=== PATIENT | female | born 1980 | race American Indian/Alaskan Native ===

== ENCOUNTER 2017-09-10 21:35 | Emergency (ER) | payer SELFPAY ==
[2017-09-10 21:35] VITALS: BMI 50.7
[2017-09-10 22:02] VITALS: BP 131/72; PULSE 86; RESP 16; TEMP 99; O2SAT 95
[2017-09-10] MEDS ORDERED: Lidocaine 1% Inj (20ml) IJ STA (22:16)
[2017-09-10] MEDS ORDERED: Lidocaine 1% Inj (20ml) ONE (22:20)
--- NOTE | 2017-09-10 22:51 | ED PDOC ---
Arrival/HPI - General Chief Complaint: Abnormal Skin Integrity Historian: Patient - History of Present Illness Narrative History of Present Illness (Text): 09/10/17 22:48 Mrs. Araujo is a 37 year old AAF with no significant past medical history who presents to the [facility] ED with a chief complaint of lacerating her left hand. 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 She endorses pain at the laceration site but denies any erythema, discharge or contact with any uncooked meat. She also denies fever, chills, headache, chest pain, SOB, abdominal pain, burning with urination or numbness/tingling/weakness of any of her extremities or digits of her left hand. Time/Duration: 1-3 hours Symptom Onset: Sudden Symptom Course: Unchanged Quality: Stabbing Severity Level: 8 Activities at Onset: Light Context: Home Past Medical History - Provider Review Nursing Documentation Reviewed: Yes - Travel History Have you recently traveled outside [place] w/in the past 3 mons?: No - Past History Past History: No Previous - Infectious Disease Hx of Infectious Diseases: None - Tetanus Immunization Tetanus Immunization: Up to Date - Past Medical History Past Medical History: No Previous - Cardiac Hx Cardiac Disorders: No - Pulmonary Hx Respiratory Disorders: No - Neurological Hx Neurological Disorder: No - HEENT Hx HEENT Disorder: No - Renal Hx Renal Disorder: No - Endocrine/Metabolic Hx Endocrine Disorders: No - Hematological/Oncological Hx Blood Disorders: No - Integumentary Hx Dermatological Disorder: No - Musculoskeletal/Rheumatological Hx Musculoskeletal Disorders: No - Gastrointestinal Hx Gastrointestinal Disorders: No - Genitourinary/Gynecological Hx Genitourinary Disorders: No - Psychiatric Hx Depression: No Hx Emotional Abuse: No Hx Physical Abuse: No Hx Substance Use: No - Surgical History Hx Section: Yes Hx Cholecystectomy: Yes - Anesthesia Hx Anesthesia: Yes Hx Anesthesia Reactions: No Hx Malignant Hyperthermia: No - Suicidal Assessment Feels Threatened In Home Enviroment: No Family/Social History - Physician Review Nursing Documentation Reviewed: Yes Family/Social History: No Known Family HX Smoking Status: Never Smoked Hx Alcohol Use: Yes Hx Substance Use: No Hx Substance Use Treatment: No Allergies/Home Meds Allergies/Adverse Reactions: Allergies Penicillins Allergy (Verified 09/10/17 22:00) ANAPHYLAXIS Home Medications: Home Meds Medication Instructions Recorded Confirmed No Known Home Med 07/21/15 09/10/17 Review of Systems - Physician Review All systems were reviewed & negative as marked: Yes - Review of Systems Constitutional: Normal Eyes: Normal ENT: Normal Respiratory: Normal Cardiovascular: Normal Gastrointestinal: Normal Genitourinary Female: Normal Musculoskeletal: Normal Skin: Laceration (to left thumb base). absent: Normal Neurological: Normal Endocrine: Normal Hemo/Lymphatic: Normal Psychiatric: Normal Physical Exam Vital Signs Reviewed: Yes Vital Signs Temp Pulse Resp BP Pulse Ox 09/10/17 22:00 99 F 86 16 131/72 95 Temperature: Afebrile Blood Pressure: Normal Pulse: Regular Respiratory Rate: Normal Appearance: Positive for: Well-Appearing, Non-Toxic, Comfortable Pain Distress: None Mental Status: Positive for: Alert and Oriented X 3 - Systems Exam Head: Present: Atraumatic, Normocephalic Pupils: Present: PERRL Extroacular Muscles: Present: EOMI Conjunctiva: Present: Normal Mouth: Present: Moist Mucous Membranes Neck: Present: Normal Range of Motion Respiratory/Chest: Present: Clear to Auscultation, Good Air Exchange. No: Respiratory Distress, Accessory Muscle Use Cardiovascular: Present: Regular Rate and Rhythm, Normal S1, S2. No: Murmurs Abdomen: Present: Normal Bowel Sounds. No: Tenderness, Distention, Peritoneal Signs Back: Present: Normal Inspection Upper Extremity: Present: Normal ROM, NORMAL PULSES, Tenderness (Base of left thumb), Neurovascularly Intact, Capillary Refill < 2s, Other (Linear laceration measuring approximately 1cm to base of left first digit ). No: Normal Inspection, Cyanosis, Edema, Swelling, Erythema, Temperature Abnormalties, Deformity Lower Extremity: Present: Normal Inspection. No: Edema Neurological: Present: GCS=15, CN II-XII Intact, Speech Normal Skin: Present: Warm, Dry, Normal Color. No: Rashes Psychiatric: Present: Alert, Oriented x 3, Normal Insight, Normal Concentration Medical Decision Making ED Course and Treatment: 09/10/17 22:54 Impression: 37 year old AAF with no significant past medical history who presents to the [facility] ED with a chief complaint of lacerating her left hand Plan: -Wound approximated with placement of one suture and dermabond -Patient up to date with last tetanus in 2008 -Discharge with instructions on suture care and to return to either PMD or ED for suture removal in 7 days Prior Visits: No previous visits - Medication Orders Current Medication Orders: Discontinued Medications Lidocaine HCl (Lidocaine 1% (20ml)) 2 ml IJ STAT STA Stop: 09/10/17 22:17 Last Admin: 09/10/17 22:23 Dose: Procedure: Wound Repair - Time Performed Time Performed: 22:56 - Performed by Performed by: Mid-level Provider - Indications Indication(s):: Laceration - Location Location:: Left, Hand Finger:: Left, Thumb Shape:: Linear Dimensions Length cm: 1 Depth:: Epidermis - Anesthetic Technique Anesthetic Technique: Local Local/Regional Anesthetic:: Lidocaine 1% - Debris Debris:: None - Complexity Complexity:: Simple (one layer) - Wound repair method Sutures:: # (1), Size (4.0), Type (Ethilon) Nury:: Tissue glue - Patient tolerated procedure Patient Tolerated Procedure:: Well Disposition/Present on Arrival - Present on Arrival Any Indicators Present on Arrival: No History of DVT/PE: No History of Uncontrolled Diabetes: No Urinary Catheter: No History of Decub. Ulcer: No History Surgical Site Infection Following: None - Disposition Have Diagnosis and Disposition been Completed?: Yes Diagnosis: Laceration of left thumb Disposition: HOME/ ROUTINE Disposition Time: 22:58 Patient Plan: Discharge Condition: GOOD Discharge Instructions (ExitCare): Care For Your Stitches (ED), Laceration (ED) Additional Instructions: Mrs. Araujo, thank you for letting us take care of you today. Your provider was Dr. Jamil. You were treated for left thumb laceration. The emergency medical care you received today was directed at your acute symptoms. If you were prescribed any medication, please fill it and take as directed. It may take several days for your symptoms to resolve. Return to the Emergency Department if your symptoms worsen, do not improve, or if you have any other problems. Please contact your doctor or call one of the physicians/clinics you have been referred to that are listed on the Patient Visit Information form that is included in your discharge packet. Bring any paperwork you were given at discharge with you along with any medications you are taking to your follow up visit. Our treatment cannot replace ongoing medical care by a primary care provider (PCP) outside of the emergency department. PLEASE FOLLOW UP WITH YOUR PMD OR RETURN TO ED IN 7 DAYS FOR SUTURE REMOVAL [facility] your care today. Referrals: [facility], [Non-Staff] - Follow up with primary Forms: [employer] (Albanian)
== END 2017-09-10 23:06 | disposition home or self-care (01) ==
LOC: ED 21:35
DX: S61.012A Laceration without foreign body of left thumb without damage to nail, initial encounter (principal); W26.0XXA Contact with knife, initial encounter; Y92.009 Unspecified place in unspecified non-institutional (private) residence as the place of occurrence of the external cause; Z88.0 Allergy status to penicillin

== ENCOUNTER 2017-09-22 19:34 | Emergency (ER) | payer SELFPAY ==
--- NOTE | 2017-09-22 19:47 | ED PDOC ---
Arrival/HPI - General Historian: Patient <Cesar Altamirano - Last Filed: 09/22/17 19:54> <Dung Best - Last Filed: 09/22/17 20:00> - General Time Seen by Provider: 09/22/17 19:43 - History of Present Illness Narrative History of Present Illness (Text): 09/22/17 19:44 37yo female in ED for suture removal from left hand. Sutures was placed here on 09/10/17. she denies fever, purulent discharge, redness to area. Denies any other complaint. (Cesar Altamirano A) Past Medical History - Provider Review Nursing Documentation Reviewed: Yes - Past History Past History: No Previous - Infectious Disease Hx of Infectious Diseases: None - Tetanus Immunization Tetanus Immunization: Up to Date - Past Medical History Past Medical History: No Previous - Cardiac Hx Cardiac Disorders: No - Pulmonary Hx Respiratory Disorders: No - Neurological Hx Neurological Disorder: No - HEENT Hx HEENT Disorder: No - Renal Hx Renal Disorder: No - Endocrine/Metabolic Hx Endocrine Disorders: No - Hematological/Oncological Hx Blood Disorders: No - Integumentary Hx Dermatological Disorder: No - Musculoskeletal/Rheumatological Hx Musculoskeletal Disorders: No - Gastrointestinal Hx Gastrointestinal Disorders: No - Genitourinary/Gynecological Hx Genitourinary Disorders: No - Psychiatric Hx Depression: No Hx Emotional Abuse: No Hx Physical Abuse: No Hx Substance Use: No - Surgical History Hx Section: Yes Hx Cholecystectomy: Yes - Anesthesia Hx Anesthesia: Yes Hx Anesthesia Reactions: No Hx Malignant Hyperthermia: No - Suicidal Assessment Feels Threatened In Home Enviroment: No <Cesar Altamirano - Last Filed: 09/22/17 19:54> Family/Social History - Physician Review Nursing Documentation Reviewed: Yes Family/Social History: Unknown Family HX Smoking Status: Never Smoked Hx Alcohol Use: Yes Hx Substance Use: No Hx Substance Use Treatment: No <Cesar Altamirano - Last Filed: 09/22/17 19:54> Allergies/Home Meds <Cesar Altamirano A - Last Filed: 09/22/17 19:54> <Dung Best - Last Filed: 09/22/17 20:00> Allergies/Adverse Reactions: Allergies Penicillins Allergy (Verified 09/22/17 19:47) ANAPHYLAXIS Home Medications: Home Meds Medication Instructions Recorded Confirmed No Known Home Med 07/21/15 09/22/17 Review of Systems - Physician Review All systems were reviewed & negative as marked: Yes - Review of Systems Constitutional: Normal Eyes: Normal ENT: Normal Respiratory: Normal Cardiovascular: Normal Gastrointestinal: Normal Genitourinary Female: Normal Musculoskeletal: Normal Skin: Other (suture removal) Neurological: Normal Endocrine: Normal Hemo/Lymphatic: Normal Psychiatric: Normal <Cesar Altamirano - Last Filed: 09/22/17 19:54> Physical Exam Vital Signs Reviewed: Yes Temperature: Afebrile Blood Pressure: Normal Pulse: Regular Respiratory Rate: Normal Appearance: Positive for: Well-Appearing, Non-Toxic, Comfortable Pain Distress: None Mental Status: Positive for: Alert and Oriented X 3 - Systems Exam Head: Present: Atraumatic, Normocephalic Pupils: Present: PERRL Extroacular Muscles: Present: EOMI Conjunctiva: Present: Normal Mouth: Present: Moist Mucous Membranes Neck: Present: Normal Range of Motion Respiratory/Chest: Present: Clear to Auscultation, Good Air Exchange. No: Respiratory Distress, Accessory Muscle Use Cardiovascular: Present: Regular Rate and Rhythm, Normal S1, S2. No: Murmurs Abdomen: Present: Normal Bowel Sounds. No: Tenderness, Distention, Peritoneal Signs Back: Present: Normal Inspection Upper Extremity: Present: Normal Inspection. No: Cyanosis, Edema Lower Extremity: Present: Normal Inspection. No: Edema Neurological: Present: GCS=15, CN II-XII Intact, Speech Normal Skin: Present: Warm, Dry, Normal Color, Other (One suture noted to left song hand). No: Rashes Psychiatric: Present: Alert, Oriented x 3, Normal Insight, Normal Concentration <Cesar Altamirano - Last Filed: 09/22/17 19:54> Vital Signs Pulse Resp BP Pulse Ox 09/22/17 19:54 82 18 148/79 98 Medical Decision Making <Cesar Altamirano - Last Filed: 09/22/17 19:54> <Dung Best - Last Filed: 09/22/17 20:00> ED Course and Treatment: 09/22/17 19:54 suture area cleaned with betadine. Suture removed. Edges appear well approximated. Bacitracine applied. Pt advised to keep wound clean an dry. Referred to her PMD. 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 <Dung Best - Last Filed: 09/22/17 20:00> Disposition/Present on Arrival - Present on Arrival Any Indicators Present on Arrival: No History of DVT/PE: No History of Uncontrolled Diabetes: No Urinary Catheter: No History Surgical Site Infection Following: None - Disposition Have Diagnosis and Disposition been Completed?: Yes Disposition Time: 19:50 Patient Plan: Discharge <Cesar Altamirano - Last Filed: 09/22/17 19:54> <Dung Best - Last Filed: 09/22/17 20:00> - Disposition Diagnosis: Visit for suture removal Disposition: HOME/ ROUTINE Condition: STABLE Discharge Instructions (ExitCare): Stitches Removal (ED) Additional Instructions: Keep wound clean and dry Follow up with your doctor Return to ED for any new or worsening symptoms Referrals: [facility] [place] - Follow up with primary
[2017-09-22 19:54] VITALS: BMI 36.6
[2017-09-22 19:55] VITALS: BP 148/79; PULSE 82; RESP 18; O2SAT 98
== END 2017-09-22 19:55 | disposition home or self-care (01) ==
LOC: ED 19:34
DX: Z48.02 Encounter for removal of sutures (principal); Z88.0 Allergy status to penicillin

== ENCOUNTER 2018-02-26 08:33 | Emergency (ER) | payer OTHER ==
[2018-02-26 09:21] VITALS: RESP 18; TEMP 98.4; BMI 48.4
[2018-02-26] MEDS ORDERED: Oxycodone/Acetaminophen 5/325 mg Tab PO STA (09:46)
--- NOTE | 2018-02-26 09:47 | ED PDOC ---
Arrival/HPI - General Time Seen by Provider: 02/26/18 09:04 Historian: Patient - History of Present Illness Narrative History of Present Illness (Text): 02/26/18 09:50 A 38 year old female, whose past medical history includes cholecystectomy, presents to the emergency department complaining of bilateral shoulder pain. Patient reports left shoulder worse than right. 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 Patient notes pain worsens when she looks up at the ceiling. Patient denies any numbness /tingling or any other complaints at this time. No PMD Past Medical History - Provider Review Nursing Documentation Reviewed: Yes - Past History Past History: No Previous - Infectious Disease Hx of Infectious Diseases: None - Tetanus Immunization Tetanus Immunization: Up to Date - Past Medical History Past Medical History: No Previous - Cardiac Hx Cardiac Disorders: No - Pulmonary Hx Respiratory Disorders: No - Neurological Hx Neurological Disorder: No - HEENT Hx HEENT Disorder: No - Renal Hx Renal Disorder: No - Endocrine/Metabolic Hx Endocrine Disorders: No - Hematological/Oncological Hx Blood Disorders: No - Integumentary Hx Dermatological Disorder: No - Musculoskeletal/Rheumatological Hx Musculoskeletal Disorders: No - Gastrointestinal Hx Gastrointestinal Disorders: No - Genitourinary/Gynecological Hx Genitourinary Disorders: No - Psychiatric Hx Depression: No Hx Emotional Abuse: No Hx Physical Abuse: No Hx Substance Use: No - Surgical History Hx Section: Yes Hx Cholecystectomy: Yes - Anesthesia Hx Anesthesia: Yes Hx Anesthesia Reactions: No Hx Malignant Hyperthermia: No - Suicidal Assessment Feels Threatened In Home Enviroment: No Family/Social History - Physician Review Nursing Documentation Reviewed: Yes Family/Social History: No Known Family HX Smoking Status: Never Smoked Hx Alcohol Use: Yes Hx Substance Use: No Hx Substance Use Treatment: No Allergies/Home Meds Allergies/Adverse Reactions: Allergies Penicillins Allergy (Verified 09/22/17 19:47) ANAPHYLAXIS Review of Systems - Physician Review All systems were reviewed & negative as marked: Yes - Review of Systems Musculoskeletal: Other (bilateral shoulder pain (left worse than right)) Neurological: absent: Other (no numbness/tingling) Physical Exam Vital Signs Reviewed: Yes Vital Signs Temp Pulse Resp BP Pulse Ox 02/26/18 09:20 98.4 F 73 18 129/74 98 Temperature: Afebrile Blood Pressure: Normal Pulse: Regular Respiratory Rate: Normal Appearance: Positive for: Well-Appearing, Non-Toxic, Comfortable Pain Distress: None Mental Status: Positive for: Alert and Oriented X 3 - Systems Exam Head: Present: Atraumatic, Normocephalic Pupils: Present: PERRL Extroacular Muscles: Present: EOMI Conjunctiva: Present: Normal Neck: Present: Normal Range of Motion Respiratory/Chest: Present: Clear to Auscultation, Good Air Exchange. No: Respiratory Distress, Accessory Muscle Use Cardiovascular: Present: Regular Rate and Rhythm, Normal S1, S2. No: Murmurs Abdomen: No: Tenderness, Distention, Peritoneal Signs Back: Present: Normal Inspection Upper Extremity: Present: Normal Inspection. No: Cyanosis, Edema Lower Extremity: Present: Normal Inspection. No: Edema Neurological: Present: GCS=15, CN II-XII Intact, Speech Normal Skin: Present: Warm, Dry, Normal Color. No: Rashes Psychiatric: Present: Alert, Oriented x 3, Normal Insight, Normal Concentration Medical Decision Making ED Course and Treatment: 02/26/18 09:52 Impression: 38 year old female with bilateral shoulder pain (left worse than right). No acute findings on physical exam. Differential Diagnosis included but are not limited to: Cervical Ridiculopathy Plan: -- Cervical Spinal CT -- Motrin -- Zofran -- Percocet -- Urine Test -- Reassess and disposition Progress Notes: 02/26/2018 11:[address] IMPRESSION: Disc space narrowing at C5-6 with posterior ridging and thecal sac indentation. Dictator: Dung Nguyen MD - RAD Interpretation Radiology Orders: 02/26/18 09:46 CERVICAL SPINE W/O CONTRAST [CT] Stat - Medication Orders Current Medication Orders: Discontinued Medications Ibuprofen (Motrin Tab) 800 mg PO STAT STA Stop: 02/26/18 09:47 Last Admin: 02/26/18 10:24 Dose: 800 mg MAR Pain/Vitals Document 02/26/18 10:24 EQ (Rec: 02/26/18 10:24 EQ [id number]) Pain Reassessment Is This A Pain ReAssessment? No Sleep Is patient sleeping during reassessment? No Presence of Pain Presence of Pain Yes Ondansetron HCl (Zofran Odt) 8 mg PO STAT STA Stop: 02/26/18 09:47 Last Admin: 02/26/18 10:24 Dose: 8 mg Oxycodone/Acetaminophen (Percocet 5/325 Mg Tab) 2 tab PO STAT STA Stop: 02/26/18 09:47 Last Admin: 02/26/18 10:24 Dose: 2 tab MAR Pain Assessment Document 02/26/18 10:24 EQ (Rec: 02/26/18 10:24 EQ [id number]) Pain Reassessment Is this a pain reassessment? No Sleep Is patient sleeping during reassessment? No Presence of Pain Presence of Pain Yes - Scribe Statement The provider has reviewed the documentation as recorded by the Sonali Mcguire Provider Scribe Attestation: All medical record entries made by the Scribe were at my direction and personally dictated by me. I have reviewed the chart and agree that the record accurately reflects my personal performance of the history, physical exam, medical decision making, and the department course for this patient. I have also personally directed, reviewed, and agree with the discharge instructions and disposition.' Disposition/Present on Arrival - Present on Arrival Any Indicators Present on Arrival: No History of DVT/PE: No History of Uncontrolled Diabetes: No Urinary Catheter: No History Surgical Site Infection Following: None - Disposition Have Diagnosis and Disposition been Completed?: Yes Diagnosis: Cervical radiculopathy, Bulging disc Disposition: HOME/ ROUTINE Disposition Time: 12:31 Patient Plan: Discharge Condition: GOOD Discharge Instructions (ExitCare): Radiculopathy (DC) Additional Instructions: Cathedra- Please follow up with the Neurosurgeon, Dr. Mccarty, you have a buldging disc in your neck. Percocet is for really bad bad pain and it is addicting, it will upset your stomach, that is what the ZofranODT is for, Motrin is to decrease the swelling and inflammation. Return to us if problems. Mac- Dr. Jesse Casey Referrals: Tino Tamayo MD [Staff Provider] - Follow up with primary
--- NOTE | 2018-02-26 11:58 | CT ---
PROCEDURE: CT Cervical Spine without contrast HISTORY: Cervical Radiculopathy COMPARISON: None available. TECHNIQUE: Axial computed tomography images were obtained of the cervical spine without the use of intravenous contrast. Coronal and sagittal reformatted images were created and reviewed. Radiation dose: Total exam DLP = mGy-cm. This CT exam was performed using one or more of the following dose reduction techniques: Automated exposure control, adjustment of the mA and/or kV according to patient size, and/or use of iterative reconstruction technique. FINDINGS: VERTEBRAE: No fracture. Normal alignment. No destructive bony lesion. DISCS/SPINAL CANAL/NEURAL FORAMINA: No significant central canal or neural foraminal stenosis. Disc space narrowing at C5-6 with posterior ridging and thecal sac indentation. PARASPINAL SOFT TISSUES: Unremarkable. OTHER FINDINGS: None. IMPRESSION: Disc space narrowing at C5-6 with posterior ridging and thecal sac indentation.
[2018-02-26 12:59] VITALS: BP 139/90; O2SAT 100
[2018-02-26 13:25] VITALS: PULSE 80
== END 2018-02-26 13:13 | disposition home or self-care (01) ==
LOC: ED 08:33
DX: M54.12 Radiculopathy, cervical region (principal)

== ENCOUNTER 2018-10-02 22:36 | Emergency (ER) | payer OTHER ==
[2018-10-02 22:56] VITALS: TEMP 98; O2SAT 100; BMI 52.3
--- NOTE | 2018-10-02 23:20 | ED PDOC ---
Arrival/HPI - General Chief Complaint: Female Genitourinary Time Seen by Provider: 10/02/18 22:46 Historian: Patient - History of Present Illness Narrative History of Present Illness (Text): 10/02/18 23:20 38 yo F c/o 1 day of vaginal itchiness, irritation and pain. Reports shaving recently. Denies any fever, abdominal pain, N/V, urinary symptoms, back pain, recent antibiotic use. Past Medical History - Past History Past History: No Previous - Infectious Disease Hx of Infectious Diseases: None - Tetanus Immunization Tetanus Immunization: Up to Date - Past Medical History Past Medical History: No Previous - Cardiac Hx Cardiac Disorders: No - Pulmonary Hx Respiratory Disorders: No - Neurological Hx Neurological Disorder: No - HEENT Hx HEENT Disorder: No - Renal Hx Renal Disorder: No - Endocrine/Metabolic Hx Endocrine Disorders: No - Hematological/Oncological Hx Blood Disorders: No - Integumentary Hx Dermatological Disorder: No - Musculoskeletal/Rheumatological Hx Musculoskeletal Disorders: No - Gastrointestinal Hx Gastrointestinal Disorders: No - Genitourinary/Gynecological Hx Genitourinary Disorders: No - Psychiatric Hx Psychophysiologic Disorder: No Hx Substance Use: No - Surgical History Hx Section: Yes (2000) Hx Cholecystectomy: Yes - Anesthesia Hx Anesthesia: Yes Hx Anesthesia Reactions: No Hx Malignant Hyperthermia: No - Suicidal Assessment Feels Threatened In Home Enviroment: No Family/Social History Family/Social History: No Known Family HX Smoking Status: Never Smoked Hx Alcohol Use: Yes Hx Substance Use: No Hx Substance Use Treatment: No Allergies/Home Meds Allergies/Adverse Reactions: Allergies Penicillins Allergy (Verified 10/02/18 22:59) ANAPHYLAXIS Review of Systems - Review of Systems Constitutional: absent: Fatigue, Fevers Gastrointestinal: absent: Abdominal Pain, Diarrhea, Nausea, Vomiting Genitourinary Female: Other (+vaginal irritation). absent: Dysuria, Frequency, Hematuria, Urine Output Changes Musculoskeletal: absent: Arthralgias, Back Pain, Neck Pain Skin: absent: Rash, Pruritis, Skin Lesions Physical Exam Vital Signs Temp Pulse Resp BP Pulse Ox 10/02/18 22:50 98.0 F 88 18 145/76 100 Temperature: Afebrile Blood Pressure: Normal Pulse: Regular Respiratory Rate: Normal Appearance: Positive for: Well-Appearing, Non-Toxic, Comfortable, Other (pt is obese) Pain Distress: None Mental Status: Positive for: Alert and Oriented X 3 - Systems Exam Head: Present: Atraumatic, Normocephalic Neck: Present: Normal Range of Motion Abdomen: No: Tenderness, Distention, Guarding Genitourinary/Pelvic Exam: Present: Normal External Genitalia, Vaginal Discharge (+thick white vaginal d/c), Other (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 No: Vaginal Bleeding, Vaginal Lesions, Cervical Motion Tendernes Upper Extremity: Present: Normal Inspection Lower Extremity: Present: Normal Inspection Neurological: Present: GCS=15, CN II-XII Intact, Speech Normal Skin: Present: Warm, Dry, Normal Color. No: Rashes Psychiatric: Present: Alert, Oriented x 3, Normal Insight, Normal Concentration Medical Decision Making ED Course and Treatment: 10/02/18 23:18 Diagnosis of yeast infection d/w the patient. Advised to follow up with primary care physician in 1-2 days without fail. Advised to take medication as prescribed. Return to the emergency room at any time for any new or worsening symptoms. Patient states she fully agrees with and understands discharge instructions. States that she agrees with the plan and disposition. Verbalized and repeated discharge instructions and plan. I have given the patient opportunity to ask any additional questions. - PA / CHIMNEY BUILDER / Resident Statement MD/DO has reviewed & agrees with the documentation as recorded. Disposition/Present on Arrival - Present on Arrival Any Indicators Present on Arrival: No History of DVT/PE: No History of Uncontrolled Diabetes: No Urinary Catheter: No History of Decub. Ulcer: No History Surgical Site Infection Following: None - Disposition Have Diagnosis and Disposition been Completed?: Yes Diagnosis: Vaginal candidiasis Disposition: HOME/ ROUTINE Disposition Time: 23:15 Patient Plan: Discharge Condition: STABLE Discharge Instructions (ExitCare): Vulvovaginal Yeast Infection Additional Instructions: Thank you for letting us take care of you today. You were treated for vaginal candidiasis. The emergency medical care you received today was directed at your acute symptoms. If you were prescribed any medication, please fill it and take as directed. It may take several days for your symptoms to resolve. Return to the Emergency Department if your symptoms worsen, do not improve, or if you have any other problems. Please contact your doctor in 2 days for re-evaluation and follow up. Bring any paperwork you were given at discharge with you along with any medications you are taking to your follow up visit. Our treatment cannot replace ongoing medical care by a primary care provider (PCP) outside of the emergency department. Thank you for allowing the [facility] team to be part of your care today. Prescriptions: Clotrimazole 1% Cream [Lotrimin 1%] 30 applic EXT BID #1 tube Miconazole/Cleanser 17 On Wipe [Miconazole 3 Kit] 1 each VG DAILY #1 kit Forms: [employer] (Slovak), WORK NOTE
[2018-10-02 23:52] VITALS: BP 125/86; PULSE 78; RESP 17
== END 2018-10-02 23:40 | disposition home or self-care (01) ==
LOC: ED 22:36
DX: B37.3 Candidiasis of vulva and vagina (principal)